=== PATIENT | female | born 1960 | race African-American/Black ===

== ENCOUNTER → 2019-11-16 | Outpatient (CLI) | payer BC ==
--- NOTE | 2019-11-16 12:47 | Diagnostic Imaging Report ---
CT THORACIC SPINE WO, CT LUMBAR SPINE WO HISTORY: Compression fracture COMPARISON: None. TECHNIQUE: Axial CT images of the thoracic and lumbar spine were obtained without intravenous contrast. Coronal/sagittal reformations were created. One or more of the following dose reduction techniques were used: Automated exposure control, adjustment of the mA and/or kV according to patient size, and/or utilization of iterative reconstruction technique. FINDINGS: Thoracic kyphosis and lumbar lordosis are preserved. There is no significant subluxation. Moderate to severe, corticated compression deformity of the right T11 vertebral body is not associated with significant retropulsion. Mild levoscoliosis is centered at this compression deformity. This may be due to remote/chronic fracture or congenital deformity (butterfly vertebra). Otherwise, no definite acute fracture, compression deformity, or destructive osseous lesions are seen. No gross spinal canal mass is seen. The paravertebral and paraspinal soft tissues are unremarkable. Degenerative changes: There are mild to moderate spondylotic changes throughout the thoracic spine without gross canal stenosis. Moderate to severe right T11-T12 foraminal stenosis is due to disc bulge and facet arthrosis. Mild multilevel lumbar spondylosis is present. There is at least mild canal stenosis from L3-L4 to L5-S1 due to disc bulges and ligamentum flavum thickening. Mild to moderate right L4-L5 foraminal stenosis is due to disc bulge and facet arthrosis. Mild bilateral sacroiliac degenerative changes are present as well. Additional findings: There is mild bibasilar atelectasis in the lungs. The partially imaged heart appears enlarged. Mild bilateral renal pelviectasis is present. Partially imaged enlarged, calcified uterus is likely due to fibroids. IMPRESSION: 1. No acute osseous abnormalities. 2. Chronic-appearing right T11 vertebral compression deformity without significant retropulsion may be due to remote/chronic compression fracture or congenital deformity (butterfly/tariq- vertebra). Mild levoscoliosis is centered at this compression deformity. Associated moderate to severe right T11-T12 foraminal stenosis due to disc bulge and facet arthrosis. 3. Mild to moderate multilevel thoracic spondylosis without gross canal stenosis. 4. Mild multilevel lumbar spondylosis. At least mild degenerative canal stenosis from L3-L4 to L5-S1. Mild to moderate right L4-L5 degenerative foraminal stenosis. 5. Partially imaged, enlarged calcified uterus is likely due to fibroids. This can be correlated with pelvic ultrasound. 6. Mild bilateral renal pelviectasis. Signed by: Dr. Taiwo Alford M.D. on 11/16/2019 12:44 PM
--- NOTE | 2019-11-17 11:03 | Diagnostic Imaging Report ---
Exam: Bone mineral density study. History: Postmenopausal female. Comparison: None Discussion: Evaluation of the left hip and lumbar spine was performed utilizing DEXA Hologic bone densitometer. The study is technically adequate. The patient's fracture risk is compared to an age-matched control. Left femoral neck bone mineral density: 0.862 g/cm2, T-score is -0.6, Z-score is 0.5. No previous comparison. Lumbar spine total bone mineral density: 0.93 gm/cm2, T-score is -1.5, Z-score is 0.1. No previous comparison. Impression: Bone mineralization by WHO Classification using T score is osteopenic, fracture risk is moderate. <T score: NL = -1 or higher Osteopenia = -1 to -2.5 Osteoporosis = -2.5 or lower Z score: < - 1.5 concerning for path> Recommendations: Medical evaluation for secondary causes of low bone mineral density may be appropriate. Correlate clinically for the necessity and timing of the next bone mineral density study. National Osteoporosis Foundation recommendations: Initiate therapy to reduce fracture risk in postmenopausal women with -BMD t-scores below -2 by central DXA with no risk factors -BMD t-scores below -1.5 by central DXA with one or more risk factors (first deg relative with hip fracture, prior personal fracture, low body weight, smoking) -A prior vertebral or hip fracture AACE (Clinical Endocrinology) recommends treating the following: Postmenopausal women who have osteoporosis as diagnosed by fragility fractures or t scores -2.5 or below Postmenopausal women who have risk factors (including fh of hip fracture, low body weight, smoking, risk of falling, high bone turnover, advancing age) and borderline low BMD T scores of -1.5 or below Adequate intake of calcium (at least 1200mg/day) and vitamin D (400-800 IU/day). Regular weight bearing and muscle - strengthening exercises Avoid smoking and excessive alcohol Signed by: Babar Rincon on 11/17/2019 11:00 AM
--- NOTE | 2019-11-18 10:42 | Diagnostic Imaging Report ---
#[id number] - [facility] #BILATERAL DIGITAL SCREENING MAMMOGRAM WITH CAD: 11/16/2019 CLINICAL: Routine screening. No prior exams were available for comparison. Current study contains 4 films. There are scattered fibroglandular elements in both breasts. Current study was also evaluated with a Computer Aided Detection (CAD) system. Benign appearing calcifications are noted bilaterally. No significant masses, calcifications, or other findings are seen in either breast. IMPRESSION: BENIGN Previous films are not available, we will issue an addendum when films are reviewed. There is no mammographic evidence of malignancy. A 1 year screening mammogram is recommended. The patient will be notified by letter of the results. JULIETA AMIN M.D. ct/penrad:11/17/2019 16:56:03 Antenna Design Engineer: Hailee CASTRO)(M), [facility] letter sent: Normal Exam Mammogram BI-RADS: 2 Benign
== END ==
LOC: CT 08:37
PROVIDERS: ATTEND Family Medicine
DX: S22.080A Wedge compression fracture of T11-T12 vertebra, initial encounter for closed fracture (principal)
CPT/HCPCS: 72128; 72131; 77067; 77080

== ENCOUNTER → 2019-11-29 | Outpatient (CLI) | payer BC ==
--- NOTE | 2019-11-29 18:20 | Diagnostic Imaging Report ---
MRI SPINE LUMBAR WO HISTORY: Lumbar radiculopathy, low back pain COMPARISON: CT of the thoracolumbar spine 11/16/2019 TECHNIQUE: Sagittal T1, sagittal T2, sagittal STIR, axial T2, coronal T2, and axial proton density weighted images of the lumbar spine were obtained without contrast. DISCUSSION: Number of non-rib bearing lumbar vertebral bodies: 5. Alignment: Straightening of the lumbar lordosis. Mild levoscoliosis is centered at T11. Vertebrae: Moderate to severe chronic compression deformity of the right T11 vertebral body is not associated with significant marrow edema or retropulsion. This may be due to remote/chronic fracture or congenital deformity. Small nodular T1 hyperintense lesion in the left inferior T11 vertebral body is a benign hemangioma. Otherwise, no definite evidence for acute fractures, infection or neoplasm. Conus medullaris: Normal, ends at L1. Cauda equina: No masses or arachnoiditis. Posterior paraspinal muscles: There is mild left paraspinal muscle atrophy at the lumbosacral junction. Soft tissues: Multi fibroid uterus is partially imaged. Mild multilevel disc degeneration is present. T10-T11: Mild right foraminal stenosis due to disc bulge and facet arthrosis. No significant canal or left foraminal stenosis. T11-T12: Moderate right foraminal stenosis due to disc bulge and facet arthrosis. No significant canal or left foraminal stenosis T12-L1: Patent canal and foramina. L1-L2: Disc bulge without significant canal or foraminal stenosis. L2-L3: Disc bulge without significant canal or foraminal stenosis. L3-L4: Moderate canal stenosis due to disc bulge, ligamentum flavum thickening, and superimposed 6 mm left central disc extrusion (with 6 mm inferior migration). The left lateral recess is effaced. The descending left L4 nerve root is impinged by the disc extrusion. Mild bilateral foraminal stenoses due to disc bulge and facet arthrosis. L4-L5: Mild canal stenosis due to disc bulge and ligamentum flavum thickening. Mild to moderate right and mild left foraminal stenoses due to disc bulge and facet arthrosis. The disc bulge may contact the exiting right L4 nerve root. L5-S1: Mild bilateral foraminal stenoses due to disc bulge and facet arthrosis. No significant canal stenosis. IMPRESSION: 1. Unchanged chronic right T11 vertebral compression deformity without significant retropulsion or marrow edema. This may be due to remote/chronic compression fracture or congenital deformity. Mild levoscoliosis is centered at this compression deformity. 2. Mild multilevel disc degeneration. 3. Moderate L3-L4 degenerative canal stenosis. Associated 6 mm left L3-L4 central disc extrusion (with 6 mm inferior migration) impinges on the descending left L4 nerve root. 4. Multilevel bilateral degenerative foraminal stenoses - moderate on the right at T11-T12; mild to moderate on the right at L4-L5. 5. Partially imaged multi-fibroid uterus can be correlated with pelvic ultrasound. Signed by: Dr. Taiwo Alford M.D. on 11/29/2019 6:18 PM
== END ==
LOC: MRI 14:40
PROVIDERS: ATTEND Specialist
DX: M54.16 Radiculopathy, lumbar region (principal)
CPT/HCPCS: 72148